=== PATIENT | female | born 1955 | race Caucasian/White ===

== ENCOUNTER 2017-11-10 15:54 | Inpatient (IN) | payer OTHER ==
[2017-11-10 16:05] LABS: POC GLUCOSE 85 mg/dL (70-99)
[2017-11-10] MEDS: IV NORMAL SALINE 1000ML BAG 1,000 ML IV ×4 (16:16→20:00)
[2017-11-10 16:35] LABS: BASO # 0.2 x10^3/uL (0.0-0.2); BASO % 1 % (0-3); EOS # 0.3 x10^3/uL (0.0-0.7); EOS % 1 % (0-3); HEMATOCRIT 36.4 % (36.0-47.0); HEMOGLOBIN 12.4 g/dL (12.0-15.5); LYMPH % 20 % (24-48); MEAN CORPUSCULAR HEMOGLOBIN 34 pg (25-35); MEAN CORPUSCULAR HGB CONC 34 g/dL (31-37); MEAN CORPUSCULAR VOLUME 99 fL (79-100); MONO # 1.7 x10^3/uL (0.0-1.1); MONO % 7 % (0-9); NEUT # 18.5 x10^3uL (1.8-7.7); NEUT % 72 % (31-73); PLATELET COUNT 457 x10^3/uL (140-400); RED BLOOD COUNT 3.67 x10^6/uL (3.50-5.40); RED CELL DISTRIBUTION WIDTH 13.6 % (11.5-14.5); WHITE BLOOD COUNT 25.7 x10^3/uL (4.0-11.0)
[2017-11-10 16:36] LABS: ADD MAN DIFF? YES
[2017-11-10 16:45] LABS: INR 1.4 (0.8-1.1); PARTIAL THROMBOPLASTIN TIME 35 SEC (24-38); PROTHROMBIN TIME PATIENT 16.5 SEC (11.7-14.0)
[2017-11-10 17:02] LABS: BILIRUBIN,URINE NEGATIVE (NEG); CLARITY,URINE CLEAR; COLOR,URINE YELLOW; GLUCOSE,URINE NEGATIVE (NEG); NITRITE,URINE NEGATIVE (NEG); PROTEIN,URINE NEGATIVE (NEG-TRACE); UROBILINOGEN,URINE 0.2 mg/dL (0.2 mg/dL)
[2017-11-10 17:15] LABS: BARBITURATES NEG (NEG); BENZODIAZEPINES NEG (NEG); CANNABINOIDS NEG (NEG); COCAINE NEG (NEG); METHADONE NEG (NEG); OPIATES POS (NEG); PHENCYCLIDINE NEG (NEG)
[2017-11-10] MEDS ORDERED: VANCOMYCIN PER PHARMACY MC (17:15)
[2017-11-10 17:16] LABS: AMPHETAMINE/METHAMPHETAMINE NEG (NEG); ETHANOL, URINE NEG (NEG)
[2017-11-10 17:22] LABS: AMORPHOUS SEDIMENT,UR PRESENT /HPF; BACTERIA,URINE 0 /HPF (0-FEW); HYALINE CASTS, URINE MODERATE /HPF; RBC,URINE 0 /HPF (0-2); WBC,URINE 0 /HPF (0-4)
[2017-11-10] MEDS: PIPERACILLIN/TAZOBACTAM 4.5 GM in IV NORMAL SALINE 100ML 100 ML IV (17:30)
[2017-11-10 17:38] LABS: ETHANOL < 10 mg/dL (0-10)
[2017-11-10 17:43] LABS: ALBUMIN 2.6 g/dL (3.4-5.0); ALBUMIN/GLOBULIN RATIO 0.6 (1.0-1.7); ALK PHOS 307 U/L (46-116); ALT (SGPT) 41 U/L (14-59); ANION GAP 7 (6-14); AST (SGOT) 153 U/L (15-37); BLOOD UREA NITROGEN 21 mg/dL (7-20); BUN/CREATININE RATIO 13 (6-20); CALCIUM 9.3 mg/dL (8.5-10.1); CARBON DIOXIDE 33 mmol/L (21-32); CHLORIDE 74 mmol/L (98-107); CREATININE 1.6 mg/dL (0.6-1.0); GFR 32.8; GLUCOSE 90 mg/dL (70-99); MAGNESIUM 2.2 mg/dL (1.8-2.4); POTASSIUM 4.1 mmol/L (3.5-5.1); TOTAL BILIRUBIN 0.9 mg/dL (0.2-1.0); TOTAL PROTEIN 6.7 g/dL (6.4-8.2)
[2017-11-10 17:44] LABS: SODIUM 114 mmol/L (136-145)
[2017-11-10 17:44] LABS: LACTIC ACID 1.3 mmol/L (0.4-2.0)
[2017-11-10 17:55] LABS: TROPONINI < 0.017 ng/mL (0.000-0.055)
[2017-11-10 18:09] LABS: PROCALCITONIN 1.62 ng/mL (0.00-0.10)
[2017-11-10] MEDS: VANCOMYCIN 1.5 GM in IV 1/2 NORMAL SALINE 500 ML IV (18:16)
[2017-11-10] MEDS ORDERED: ONDANSETRON PF 4 MG/2 ML VIAL. IV (18:30)
[2017-11-10] MEDS ORDERED: ACETAMINOPHEN 325 MG TABLET. PO (18:30)
[2017-11-10] MEDS: IPRATRPIUM/ALBUTEROL 0.5/2.5MG 3 ML NEBU. NEB (20:05)
[2017-11-10] MEDS ORDERED: CYCLOBENZAPRINE 10 MG TABLET. PO (20:30)
[2017-11-10 20:56] LABS: % BANDS 7 % (0-9); % BASOS 2 % (0-3); % EOS 1 % (0-5); % LYMPHS 13 % (24-48); % MONOS 11 % (0-10); % SEGS 66 % (35-66)
[2017-11-10 20:57] LABS: PLT ESTIMATE ADEQUATE (ADEQUATE)
[2017-11-10] MEDS: ZOLPIDEM 5 MG TABLET. PO (21:00)
[2017-11-10] MEDS: GABAPENTIN 300 MG CAPSULE. PO (21:03)
[2017-11-10] MEDS: guaiFENesin DM 600/30MG 1 TAB TAB.ER.12H PO (21:03)
[2017-11-10] MEDS: LORazepam 0.5 MG TABLET PO (21:03)
[2017-11-10 21:18] LABS: D-DIMER 1.44 ug/mlFEU (0.00-0.50)
[2017-11-10] MEDS: oxyCODONE/APAP 10/325 1 TAB TABLET PO (22:57)
[2017-11-11] MEDS: SODIUM CHLORIDE 3 % 300 ML IV (02:07)
[2017-11-11] MEDS: MORPHINE SULFATE 2 MG/ML DISP.SYRIN. IV (02:20)
[2017-11-11 06:06] LABS: ADD MAN DIFF? NO
[2017-11-11 06:19] LABS: BASO # 0.2 x10^3/uL (0.0-0.2); BASO % 1 % (0-3); EOS # 0.6 x10^3/uL (0.0-0.7); EOS % 3 % (0-3); HEMATOCRIT 35.1 % (36.0-47.0); LYMPH % 14 % (24-48); MEAN CORPUSCULAR HEMOGLOBIN 34 pg (25-35); MEAN CORPUSCULAR HGB CONC 34 g/dL (31-37); MEAN CORPUSCULAR VOLUME 99 fL (79-100); MONO % 5 % (0-9); NEUT # 17.4 x10^3uL (1.8-7.7); NEUT % 78 % (31-73); PLATELET COUNT 390 x10^3/uL (140-400); RED BLOOD COUNT 3.54 x10^6/uL (3.50-5.40); RED CELL DISTRIBUTION WIDTH 13.2 % (11.5-14.5); WHITE BLOOD COUNT 22.2 x10^3/uL (4.0-11.0)
[2017-11-11 06:29] LABS: ALBUMIN 2.1 g/dL (3.4-5.0); ALBUMIN/GLOBULIN RATIO 0.6 (1.0-1.7); ALK PHOS 258 U/L (46-116); ALT (SGPT) 31 U/L (14-59); ANION GAP 8 (6-14); AST (SGOT) 111 U/L (15-37); BLOOD UREA NITROGEN 17 mg/dL (7-20); BUN/CREATININE RATIO 13 (6-20); CALCIUM 8.6 mg/dL (8.5-10.1); CARBON DIOXIDE 29 mmol/L (21-32); CHLORIDE 84 mmol/L (98-107); CREATININE 1.3 mg/dL (0.6-1.0); GFR 41.6; GLUCOSE 64 mg/dL (70-99); POTASSIUM 3.6 mmol/L (3.5-5.1); SODIUM 121 mmol/L (136-145); TOTAL BILIRUBIN 0.8 mg/dL (0.2-1.0); TOTAL PROTEIN 5.7 g/dL (6.4-8.2)
[2017-11-11 07:48] LABS: POC GLUCOSE 57 mg/dL (70-99)
[2017-11-11] MEDS: DEXTROSE 50% 25 GM / 50ML DISP.SYRIN. IV (08:00)
[2017-11-11] MEDS ORDERED: ZOLPIDEM 5 MG TABLET. PO (08:15)
[2017-11-11] MEDS: IPRATRPIUM/ALBUTEROL 0.5/2.5MG 3 ML NEBU. NEB ×5 (08:27→21:23)
[2017-11-11 08:47] LABS: POC GLUCOSE 98 mg/dL (70-99)
[2017-11-11] MEDS: guaiFENesin DM 600/30MG 1 TAB TAB.ER.12H PO ×2 (09:00→20:58)
[2017-11-11] MEDS: MULTIVITAMIN with MINERAL TABLET. PO (09:00)
[2017-11-11] MEDS ORDERED: LANSOPRAZOLE 30 MG TAB.RAP.DR PO (09:00)
[2017-11-11] MEDS: FOLIC ACID 1 MG TABLET. PO (09:00)
[2017-11-11 09:04] LABS: BASE EXCESS ABG 3 mmol/L (-3-3); HCO3 ABG 27 mmol/L (21-28); PCO2 ABG 39 mmHg (35-46); PH ABG 7.46 (7.35-7.45); PO2 ABG 60 mmHg (65-108); SAT O2 ABG 90 % (92-99)
[2017-11-11 09:06] LABS: FIO2 ABG 40
[2017-11-11 09:14] LABS: NT-PRO BNP 2103 pg/mL (0-124)
[2017-11-11] MEDS: PANTOPRAZOLE IV PUSH 40 MG VIAL. IVP (09:23)
[2017-11-11] MEDS: THIAMINE 100 MG in IV DEXTROSE 5% 50 ML IV (09:25)
[2017-11-11] MEDS: IV NORMAL SALINE 1000ML BAG 1,000 ML IV (10:22)
[2017-11-11 11:47] LABS: POC GLUCOSE 72 mg/dL (70-99)
[2017-11-11 12:21] LABS: SODIUM 126 mmol/L (136-145)
[2017-11-11] MEDS ORDERED: PIP/TAZO PER PHARMACY MC (12:30)
[2017-11-11] MEDS: PIPERACILLIN/TAZOBACTAM 4.5 GM in IV NORMAL SALINE 100ML 100 ML IV ×3 (13:02→23:32)
[2017-11-11] MEDS: methylPREDNISolone SOD SUCC PF 125 MG/2 ML VIAL. IV ×3 (13:03→21:32)
[2017-11-11] MEDS: TPN PER PHARMACY MC ×2 (13:14→13:16)
[2017-11-11] MEDS: ANTI-COAG MONITOR BY PHARMACY. MC (13:24)
[2017-11-11 16:52] LABS: POC GLUCOSE 126 mg/dL (70-99)
[2017-11-11] MEDS: oxyCODONE/APAP 10/325 1 TAB TABLET PO (21:13)
[2017-11-11] MEDS: [UNRECOGNIZED DRUG - OTHER] IV (21:34)
[2017-11-11] MEDS: TOTAL PARENTERAL NUTRITION IV (21:34)
[2017-11-11] MEDS: AMINO ACID IV (21:34)
[2017-11-11] MEDS: DEXTROSE 70% IV (21:34)
[2017-11-11 22:15] LABS: MRSA BY PCR Negative (Negative)
[2017-11-11 23:16] LABS: POC GLUCOSE 201 mg/dL (70-99)
[2017-11-12 01:12] LABS: SODIUM, URINE <60 mmol/L (Not Estab.); UR POTASSIUM 22.9 mmol/L (Not Estab.)
[2017-11-12] MEDS: IPRATRPIUM/ALBUTEROL 0.5/2.5MG 3 ML NEBU. NEB ×4 (02:07→19:59)
[2017-11-12] MEDS: IV NORMAL SALINE 1000ML BAG 1,000 ML IV (02:47)
[2017-11-12] MEDS: PIPERACILLIN/TAZOBACTAM 4.5 GM in IV NORMAL SALINE 100ML 100 ML IV ×4 (05:51→23:59)
[2017-11-12] MEDS: methylPREDNISolone SOD SUCC PF 125 MG/2 ML VIAL. IV ×3 (05:51→21:51)
[2017-11-12 06:28] LABS: ANION GAP 8 (6-14); BLOOD UREA NITROGEN 16 mg/dL (7-20); CALCIUM 7.8 mg/dL (8.5-10.1); CARBON DIOXIDE 28 mmol/L (21-32); CHLORIDE 93 mmol/L (98-107); CREATININE 1.4 mg/dL (0.6-1.0); GFR 38.2; GLUCOSE 240 mg/dL (70-99); PHOSPHORUS 2.7 mg/dL (2.6-4.7); POTASSIUM 3.3 mmol/L (3.5-5.1); SODIUM 129 mmol/L (136-145)
[2017-11-12 06:30] LABS: URIC ACID 5.9 mg/dL (2.6-6.0)
[2017-11-12 06:32] LABS: TRIGLYCERIDES 66 mg/dL (0-150)
[2017-11-12] MEDS: PANTOPRAZOLE IV PUSH 40 MG VIAL. IVP (08:11)
[2017-11-12] MEDS: oxyCODONE/APAP 10/325 1 TAB TABLET PO (08:12)
[2017-11-12] MEDS: guaiFENesin DM 600/30MG 1 TAB TAB.ER.12H PO ×2 (08:13→20:34)
[2017-11-12] MEDS ORDERED: MAGNESIUM SULFATE 2GM 50 ML IV (08:45)
[2017-11-12] MEDS ORDERED: POTASSIUM CHLORIDE 20MEQ 50 ML IV ×2 (08:45)
[2017-11-12] MEDS: POTASSIUM CHLORIDE 20MEQ 50 ML IV ×2 (10:20→11:41)
[2017-11-12] MEDS: TPN PER PHARMACY MC ×2 (11:22→11:28)
[2017-11-12] MEDS: fentaNYL 50MCG/HR PATCH 1 PATCH PATCH.TD72 TD (12:00)
[2017-11-12] MEDS: MORPHINE SULFATE 4 MG/ML DISP.SYRIN. IV ×5 (12:00→20:11)
[2017-11-12] MEDS ORDERED: MULTIVIT INFUSN,ADULT 4,VIT K 10 ML, THIAMINE 100 MG, FOLIC ACID 1 MG in IV NORMAL SALI... IV (14:00)
[2017-11-12 14:39] LABS: POC GLUCOSE 193 mg/dL (70-99)
[2017-11-12 18:37] LABS: POC GLUCOSE 183 mg/dL (70-99)
[2017-11-12 19:04] LABS: POTASSIUM 3.9 mmol/L (3.5-5.1)
[2017-11-12] MEDS: [UNRECOGNIZED DRUG - OTHER] IV (22:04)
[2017-11-12] MEDS: DEXTROSE 70% IV (22:04)
[2017-11-12] MEDS: AMINO ACID IV (22:04)
[2017-11-12] MEDS: TOTAL PARENTERAL NUTRITION IV (22:04)
[2017-11-13] MEDS: MORPHINE SULFATE 4 MG/ML DISP.SYRIN. IV ×6 (01:12→18:08)
[2017-11-13] MEDS: PIPERACILLIN/TAZOBACTAM 4.5 GM in IV NORMAL SALINE 100ML 100 ML IV ×3 (06:10→17:34)
[2017-11-13] MEDS: methylPREDNISolone SOD SUCC PF 125 MG/2 ML VIAL. IV ×3 (06:10→21:35)
[2017-11-13 06:43] LABS: MAGNESIUM 2.6 mg/dL (1.8-2.4)
[2017-11-13 06:45] LABS: ANION GAP 9 (6-14); BLOOD UREA NITROGEN 20 mg/dL (7-20); CALCIUM 8.8 mg/dL (8.5-10.1); CARBON DIOXIDE 27 mmol/L (21-32); CHLORIDE 100 mmol/L (98-107); CREATININE 1.3 mg/dL (0.6-1.0); GFR 41.6; GLUCOSE 187 mg/dL (70-99); MAGNESIUM 2.6 mg/dL (1.8-2.4); PHOSPHORUS 3.3 mg/dL (2.6-4.7); POTASSIUM 4.8 mmol/L (3.5-5.1); SODIUM 136 mmol/L (136-145)
[2017-11-13] MEDS: IPRATRPIUM/ALBUTEROL 0.5/2.5MG 3 ML NEBU. NEB ×4 (07:21→19:38)
[2017-11-13 07:40] LABS: ADD MAN DIFF? NO
[2017-11-13 07:52] LABS: BASO # 0.1 x10^3/uL (0.0-0.2); BASO % 0 % (0-3); EOS % 0 % (0-3); HEMATOCRIT 38.2 % (36.0-47.0); HEMOGLOBIN 12.6 g/dL (12.0-15.5); LYMPH # 5.3 x10^3/uL (1.0-4.8); LYMPH % 14 % (24-48); MEAN CORPUSCULAR HEMOGLOBIN 34 pg (25-35); MEAN CORPUSCULAR HGB CONC 33 g/dL (31-37); MONO # 2.9 x10^3/uL (0.0-1.1); MONO % 8 % (0-9); NEUT # 29.7 x10^3uL (1.8-7.7); NEUT % 78 % (31-73); PLATELET COUNT 298 x10^3/uL (140-400); RED BLOOD COUNT 3.68 x10^6/uL (3.50-5.40); RED CELL DISTRIBUTION WIDTH 14.1 % (11.5-14.5); WHITE BLOOD COUNT 38.1 x10^3/uL (4.0-11.0)
[2017-11-13] MEDS: PANTOPRAZOLE IV PUSH 40 MG VIAL. IVP (07:56)
[2017-11-13] MEDS: guaiFENesin DM 600/30MG 1 TAB TAB.ER.12H PO ×2 (07:57→19:39)
[2017-11-13 08:01] LABS: MEAN CORPUSCULAR VOLUME 104 fL (79-100)
[2017-11-13] MEDS: TPN PER PHARMACY MC (11:52)
[2017-11-13] MEDS: fentaNYL 75MCG/HR PATCH 1 PATCH PATCH.TD72 TD (11:58)
[2017-11-13 12:11] LABS: POC GLUCOSE 163 mg/dL (70-99)
[2017-11-13 12:25] LABS: BASE EXCESS ABG -3 mmol/L (-3-3); HCO3 ABG 22 mmol/L (21-28); PCO2 ABG 42 mmHg (35-46); PH ABG 7.35 (7.35-7.45); PO2 ABG 91 mmHg (65-108); SAT O2 ABG 96 % (92-99)
[2017-11-13 12:27] LABS: POTASSIUM 4.6 mmol/L (3.5-5.1)
[2017-11-13 12:54] LABS: FIO2 ABG 100
[2017-11-13 17:51] LABS: POC GLUCOSE 175 mg/dL (70-99)
[2017-11-13] MEDS: DEXTROSE 70% IV (21:36)
[2017-11-13] MEDS: AMINO ACID IV (21:36)
[2017-11-13] MEDS: [UNRECOGNIZED DRUG - OTHER] IV (21:36)
[2017-11-13] MEDS: TOTAL PARENTERAL NUTRITION IV (21:36)
[2017-11-14] MEDS: PIPERACILLIN/TAZOBACTAM 4.5 GM in IV NORMAL SALINE 100ML 100 ML IV ×5 (00:08→23:44)
[2017-11-14] MEDS: MORPHINE SULFATE 4 MG/ML DISP.SYRIN. IV ×8 (00:08→22:46)
[2017-11-14] MEDS: methylPREDNISolone SOD SUCC PF 125 MG/2 ML VIAL. IV (05:48)
[2017-11-14 06:21] LABS: ANION GAP 5 (6-14); BLOOD UREA NITROGEN 28 mg/dL (7-20); CALCIUM 8.4 mg/dL (8.5-10.1); CARBON DIOXIDE 27 mmol/L (21-32); CHLORIDE 106 mmol/L (98-107); CREATININE 1.3 mg/dL (0.6-1.0); GFR 41.6; GLUCOSE 181 mg/dL (70-99); MAGNESIUM 2.5 mg/dL (1.8-2.4); PHOSPHORUS 3.3 mg/dL (2.6-4.7); POTASSIUM 5.2 mmol/L (3.5-5.1); SODIUM 138 mmol/L (136-145)
[2017-11-14] MEDS: PANTOPRAZOLE IV PUSH 40 MG VIAL. IVP (07:38)
[2017-11-14] MEDS: ENOXAPARIN 40 MG/0.4 ML SYRINGE. SQ (07:38)
[2017-11-14] MEDS: guaiFENesin DM 600/30MG 1 TAB TAB.ER.12H PO (07:38)
[2017-11-14] MEDS: IPRATRPIUM/ALBUTEROL 0.5/2.5MG 3 ML NEBU. NEB ×4 (08:00→19:41)
[2017-11-14 09:09] LABS: AMMONIA 34 mcmol/L (11-34)
[2017-11-14] MEDS: HALOPERIDOL LACTATE 5 MG/ML VIAL. IVP ×3 (09:23→23:44)
[2017-11-14 12:28] LABS: POTASSIUM 5.3 mmol/L (3.5-5.1)
[2017-11-14] MEDS: TPN PER PHARMACY MC (13:49)
[2017-11-14] MEDS: methylPREDNISolone SOD SUCC PF 40 MG/ML VIAL. IV (17:55)
[2017-11-14] MEDS ORDERED: methylPREDNISolone SOD SUCC PF 125 MG/2 ML VIAL. IV (18:00)
[2017-11-14] MEDS: IV DEXTROSE 10% 1,000 ML IV (20:55)
[2017-11-14] MEDS ORDERED: TOTAL PARENTERAL NUTRITION IV (22:00)
[2017-11-14] MEDS ORDERED: AMINO ACID IV (22:00)
[2017-11-14] MEDS ORDERED: [UNRECOGNIZED DRUG - OTHER] IV (22:00)
[2017-11-14] MEDS ORDERED: DEXTROSE 70% IV (22:00)
[2017-11-15] MEDS: MORPHINE SULFATE 4 MG/ML DISP.SYRIN. IV ×2 (03:11→09:00)
[2017-11-15] MEDS: HALOPERIDOL LACTATE 5 MG/ML VIAL. IVP ×2 (03:19→09:00)
[2017-11-15] MEDS: PIPERACILLIN/TAZOBACTAM 4.5 GM in IV NORMAL SALINE 100ML 100 ML IV (06:08)
[2017-11-15] MEDS: methylPREDNISolone SOD SUCC PF 40 MG/ML VIAL. IV (06:08)
[2017-11-15] MEDS: PANTOPRAZOLE IV PUSH 40 MG VIAL. IVP (07:23)
[2017-11-15] MEDS: ENOXAPARIN 40 MG/0.4 ML SYRINGE. SQ (07:23)
[2017-11-15] MEDS: IPRATRPIUM/ALBUTEROL 0.5/2.5MG 3 ML NEBU. NEB (08:21)
[2017-11-15] MEDS: MORPHINE SULFATE/PF 30 ML IV ×3 (09:34→17:27)
== END 2017-11-15 18:45 | disposition hospice, inpatient (51) | DRG 871 ==
LOC: ER 15:54 → 1 WEST ICU 18:00
PROVIDERS: Family Medicine
PROC: 02HV33Z Insertion of Infusion Device into Superior Vena Cava, Percutaneous Approach (ICD-10-PCS; principal; 2017-11-11)
DX: A41.9 Sepsis, unspecified organism (principal); G92 Toxic encephalopathy; J96.01 Acute respiratory failure with hypoxia; J15.9 Unspecified bacterial pneumonia; N17.9 Acute kidney failure, unspecified; C25.9 Malignant neoplasm of pancreas, unspecified; E46 Unspecified protein-calorie malnutrition; E87.1 Hypo-osmolality and hyponatremia; F11.20 Opioid dependence, uncomplicated; G93.1 Anoxic brain damage, not elsewhere classified; J44.0 Chronic obstructive pulmonary disease with (acute) lower respiratory infection; R18.8 Other ascites; Z68.25 Body mass index [BMI] 25.0-25.9, adult; E86.0 Dehydration; F10.20 Alcohol dependence, uncomplicated; F17.210 Nicotine dependence, cigarettes, uncomplicated; I12.9 Hypertensive chronic kidney disease with stage 1 through stage 4 chronic kidney disease, or unspecified chronic kidney disease; N18.3 Chronic kidney disease, stage 3 (moderate); R29.6 Repeated falls; Z51.5 Encounter for palliative care; Z66 Do not resuscitate; Z85.07 Personal history of malignant neoplasm of pancreas; Z90.411 Acquired partial absence of pancreas; Z90.710 Acquired absence of both cervix and uterus; Z90.81 Acquired absence of spleen; Z92.21 Personal history of antineoplastic chemotherapy; Z85.72 Personal history of non-Hodgkin lymphomas; G89.29 Other chronic pain
CPT/HCPCS: 36415; 36569; 36600; 51702; 70450; 71045; 71250; 72125; 74018; 74176; 80048; 80053; 80307; 81001; 82140; 82436; 82805; 82962; 83605; 83735; 83880; 84100; 84132; 84133; 84145; 84295; 84300; 84478; 84484; 84550; 85007; 85025; 85379; 85610; 85730; 87040; 87641; 93005; 93306; 93970; 94640; 94760; 96365; 96367; 96368; 99285-25; C9113; G0480; J1630; J1650; J1956; J2020; J2060; J2270; J2543; J2920; J2930; J3370; J3475; J3480; J3490; J7030; J7042; J7620